=== PATIENT | female | born 1930 | race Caucasian/White ===

== ENCOUNTER 2017-06-11 13:39 | Emergency (ER) | payer MEDICARE, BC ==
[~2017-06-11] VITALS: Ht 162.6 cm; Wt 68.6 kg
[~2017-06-11 13:39] MED LIST: ALDACTONE 25MG25 M1 PO; ASPI325T6 PO; ASPIRIN 32325 MG/TAB PO; CARDIZEM CD 12120 MG PO; CATAPRES 0.1MG0.1 MG PO; CEFTIN500 MG PO; CENTRUM SILVER1 TAB; CIPRO 250MG TA250 MG PO; CLARINEX 5MG5 MG PO; COZAAR100 MG PO; CRESTOR 10MG10 MG PO; D-31000 IU PO; FLAGYL 250250 MG/TAB PO; IMITREX 25MG TA25 MG PO; INDERAL LA 80MG80 MG PO; KLOR-CON M2020 MEQ PO; MULTIPLE VITAMI1 CTB PO; NORMODYNE100 MG PO; SINGULAIR 110 MG/TAB PO; SLOW-MAG 6464 MG/TAB PO; SYNTHROID0.075 MG/T PO; VASOTEC20 MG PO; VITAMIN D1000 IU PO; ZANTAC 150MG T150 MG PO; ZAROXOLYN 2.52.5 MG PO; ZOLOFT 25MG25 MG PO
[2017-06-11 13:41] VITALS: BP 132/64; TEMP 97.3
[2017-06-11] MEDS ORDERED: ASPIRIN 32325 MG/TAB PO (14:25)
[2017-06-11] MEDS ORDERED: VITAMIN D 1001000 IU PO (14:26)
[2017-06-11] MEDS ORDERED: NORMODYNE100 MG PO (14:26)
[2017-06-11] MEDS ORDERED: CLARINEX 5MG5 MG PO (14:26)
[2017-06-11] MEDS ORDERED: COZAAR100 MG PO (14:27)
[2017-06-11] MEDS ORDERED: SINGULAIR 110 MG/TAB PO (14:27)
[2017-06-11] MEDS ORDERED: SYNTHROID0.075 MG/T PO (14:27)
[2017-06-11] MEDS ORDERED: BEE-ZEE1 TAB PO (14:28)
[2017-06-11] MEDS ORDERED: KLOR-CON 1010 MEQ PO (14:28)
[2017-06-11] MEDS ORDERED: CRESTOR 10MG10 MG PO (14:29)
[2017-06-11] MEDS ORDERED: ZANTAC 150MG T150 MG PO (14:29)
[2017-06-11] MEDS ORDERED: ZOLOFT 25MG25 MG PO (14:29)
[2017-06-11] MEDS ORDERED: IMITREX 25MG TA25 MG PO (14:30)
[2017-06-11] MEDS ORDERED: NITROSTAT0.4 MG/TAB SL (14:30)
[2017-06-11] MEDS ORDERED: ALDACTONE 25MG25 M1 PO (14:30)
[2017-06-11 16:09] LABS: COLLECTION METHOD CLEAN CATCH
[2017-06-11 16:20] LABS: MUCOUS Present /lpf; PH 6 (5-8); SQUAMOUS EPITHELIAL 0-2 /hpf; URINE APPEARANCE Clear; URINE BACTERIA None Seen /hpf; URINE BILIRUBIN Negative (NEGATIVE); URINE BLOOD Negative (NEGATIVE); URINE COLOR Yellow; URINE GLUCOSE Negative (NEGATIVE); URINE KETONE Negative (NEGATIVE); URINE LEUKOCYTE ESTERASE Trace (NEGATIVE); URINE NITRATE Negative (NEGATIVE); URINE PROTEIN(semi-quant) Negative (NEGATIVE); URINE RBC 0-2 /hpf; URINE UROBILINOGEN Negative (NEGATIVE)
[2017-06-11] MEDS ORDERED: NORCO 325 MG-51 TAB PO (16:48)
[2017-06-11 17:03] VITALS: PULSE 70
[2017-06-12] MEDS ORDERED: NATURAL MAGNES200 MG (10:39)
[2017-06-12] MEDS ORDERED: TAMIFLU 75MG75 MG PO (10:39)
== END 2017-06-11 17:00 | disposition home or self-care (01) ==
LOC: COL.ER 13:39
PROVIDERS: Emergency Medicine
DX: S22.32XA Fracture of one rib, left side, initial encounter for closed fracture (principal); I10 Essential (primary) hypertension; E78.00 Pure hypercholesterolemia, unspecified; Z79.82 Long term (current) use of aspirin; W19.XXXA Unspecified fall, initial encounter; Y92.009 Unspecified place in unspecified non-institutional (private) residence as the place of occurrence of the external cause

== ENCOUNTER → 2017-08-17 | Outpatient (CLI) | payer MEDICARE, BC ==
[~2017-08-17] MED LIST changes: +BEE-ZEE1 TAB PO; +IPRATROPIUM BROM3 M1 IH; +KLOR-CON 1010 MEQ PO; +NATURAL MAGNES200 MG PO; +NITROSTAT0.4 MG/TAB SL; +NORCO 325 MG-51 TAB PO; +OMNICEF 300MG300 MG PO; +PROBIOTIC GOLD1 EACH PO; +TAMIFLU 75MG75 MG PO; +TYLENOL 325MG325 MG PO; +VITAMIN D 1001000 IU PO
== END ==
LOC: COL.RAD 14:48
DX: R60.0 Localized edema (principal); R79.89 Other specified abnormal findings of blood chemistry

== ENCOUNTER → 2017-08-17 | Outpatient (CLI) | payer MEDICARE, BC | LOC: COL.LAB 13:31 | DX: R60.0 Localized edema (principal) ==

== ENCOUNTER → 2017-09-15 | Outpatient (CLI) | payer MEDICARE, BC ==
[~2017-09-15] VITALS: Ht 162.6 cm; Wt 66.1 kg
[~2017-09-15] MED LIST changes: +MOBIC 7.5MG7.5 MG PO; +NORVASC 5MG5 MG/TAB PO; +PHARMASSURE MA500 MG PO; +XARELTO10 MG PO
[2017-09-15 13:49] VITALS: BP 158/84; PULSE 72
[2017-09-15 15:35] VITALS: BP 172/91; PULSE 75
== END ==
LOC: COL.RAD 13:29
DX: M54.41 Lumbago with sciatica, right side (principal); M54.42 Lumbago with sciatica, left side
CPT/HCPCS: J3301

== ENCOUNTER → 2017-10-30 | Outpatient (CLI) | payer MEDICARE, BC | LOC: MC.RAD 10:59 | DX: Z12.31 Encounter for screening mammogram for malignant neoplasm of breast (principal) ==

== ENCOUNTER → 2018-01-19 | Outpatient (CLI) | payer MEDICARE, BC ==
[~2018-01-19] VITALS: Ht 162.6 cm; Wt 68.2 kg
[~2018-01-19] MED LIST changes: +MAGNESIUM250 M1 PO
[2018-01-19 13:25] VITALS: BP 165/81; PULSE 68
== END ==
LOC: COL.RAD 11:45
DX: M51.16 Intervertebral disc disorders with radiculopathy, lumbar region (principal)
CPT/HCPCS: J3301

== ENCOUNTER 2018-07-26 08:19 | Emergency (ER) | payer MEDICARE, BC ==
[~2018-07-26] VITALS: Ht 162.6 cm; Wt 68.2 kg
[2018-07-26 08:23] VITALS: TEMP 98.3
[2018-07-26] MEDS ORDERED: ZOFRAN ODT8 MG PO (08:38)
[2018-07-26 09:10] LABS: HEMATOCRIT 38.9 % (37.0-47.0); HEMOGLOBIN 13.3 g/dl (12.5-16.0); MEAN CELL VOLUME 88 fl (80.0-100.0); MEAN CORPUSCULAR HEMOGLOBIN 30 pg (27.0-31.0); MEAN CORPUSCULAR HGB CONC 34 g/dl (33.0-37.0); MEAN PLATELET VOLUME 10.1 fl (7.4-10.4); PLATELET COUNT 270 K/mm3 (130-400); RED BLOOD COUNT 4.41 M/mm3 (4.10-5.30); REDCELL DISTRIBUTION WIDTH-CV 12.7 % (11.5-14.5)
[2018-07-26 09:19] LABS: ALBUMIN 4.9 gm/dL (3.5-5.0); BILIRUBIN,TOTAL 0.9 mg/dL (0.0-1.0); CALCIUM 10.6 mg/dL (8.4-10.2); CREATININE, serum 1.39 (0.52-1.25); POTASSIUM 4.1 mmol/L (3.4-5.0); TOTAL PROTEIN 8.4 gm/dL (6.4-8.2)
[2018-07-26 09:22] LABS: BAND 2 % (0-10); BASOPHIL 1 % (0-2); EOSINOPHIL 2 % (0-4); LYMPHOCYTE 21 % (20.0-51.0); NEUTROPHILS 56 % (42.0-75.2); PLATELET ESTIMATE NORMAL (NORMAL)
[2018-07-26 10:45] VITALS: BP 131/68; PULSE 68
== END 2018-07-26 10:50 | disposition home or self-care (01) ==
LOC: COL.ER 08:19
PROVIDERS: Emergency Medicine
DX: R19.7 Diarrhea, unspecified (principal); R11.2 Nausea with vomiting, unspecified; E86.9 Volume depletion, unspecified; Z95.1 Presence of aortocoronary bypass graft
CPT/HCPCS: J2405; J7030

== ENCOUNTER → 2018-12-07 | Outpatient (CLI) | payer MEDICARE, BC ==
[~2018-12-07] VITALS: Ht 162.6 cm; Wt 66.1 kg
[~2018-12-07] MED LIST changes: +MAG-OX 400400 MG/TAB PO; +OSCAL 500 TAB500 MG PO; +ZOFRAN ODT8 MG PO
[2018-12-07 12:30] VITALS: BP 179/96; PULSE 76
[2018-12-07 13:25] VITALS: BP 183/79; PULSE 75
--- NOTE | 2018-12-07 15:18 | NUR ---
PT IS ABLE TO STAND WITHOUT ASSIST. SHE CAN LIFT HER LEFT LEG EASILY BUT THE RIGHT LEG IS MORE DIFFICULT TO LIFT. BOTTOM IS STILL NUMB.
== END ==
LOC: COL.RAD 11:45
DX: M53.86 Other specified dorsopathies, lumbar region (principal); M51.16 Intervertebral disc disorders with radiculopathy, lumbar region
CPT/HCPCS: J3301

== ENCOUNTER 2019-01-29 22:03 | Emergency (ER) | payer MEDICARE, BC ==
[~2019-01-29] VITALS: Ht 162.6 cm; Wt 65.9 kg
[2019-01-29 22:10] VITALS: TEMP 97.6
[2019-01-29 22:41] LABS: BASO % 0.4 % (0.0-2.0); EOS # 0.3 (0.0-0.7); EOS % 5.6 % (0-4.0); GRAN # 2.5 (1.4-6.5); GRAN % 44.9 % (42.2-75.2); HEMATOCRIT 32.6 % (37.0-47.0); HEMOGLOBIN 11.1 g/dl (12.5-16.0); LYMPH # 2.1 (1.2-3.4); LYMPH % 38.1 % (20.0-51.0); MEAN CELL VOLUME 93 fl (80.0-100.0); MEAN CORPUSCULAR HEMOGLOBIN 32 pg (27.0-31.0); MEAN CORPUSCULAR HGB CONC 34 g/dl (33.0-37.0); MEAN PLATELET VOLUME 9.6 fl (7.4-10.4); MONO # 0.6 (0.1-0.6); MONO % 10.6 % (1.7-9.3); PLATELET COUNT 216 K/mm3 (130-400); RED BLOOD COUNT 3.51 M/mm3 (4.10-5.30); REDCELL DISTRIBUTION WIDTH-CV 12.9 % (11.5-14.5)
[2019-01-29 22:50] LABS: ALBUMIN 4.6 gm/dL (3.5-5.0); BILIRUBIN,TOTAL 0.4 mg/dL (0.0-1.0); CALCIUM 9.9 mg/dL (8.4-10.2); CREATININE, serum 1.17 (0.52-1.25); TOTAL PROTEIN 7.4 gm/dL (6.4-8.2)
[2019-01-29 23:03] VITALS: BP 161/81; PULSE 75
== END 2019-01-29 23:14 | disposition home or self-care (01) ==
LOC: COL.ER 22:03
PROVIDERS: Emergency Medicine
DX: T44.8X1A Poisoning by centrally-acting and adrenergic-neuron-blocking agents, accidental (unintentional), initial encounter (principal); T46.6X1A Poisoning by antihyperlipidemic and antiarteriosclerotic drugs, accidental (unintentional), initial encounter; T47.0X1A Poisoning by histamine H2-receptor blockers, accidental (unintentional), initial encounter; I25.10 Atherosclerotic heart disease of native coronary artery without angina pectoris; I10 Essential (primary) hypertension; Z79.82 Long term (current) use of aspirin; Z95.5 Presence of coronary angioplasty implant and graft